=== PATIENT | male | born 1950 | race Caucasian/White ===

== ENCOUNTER 2016-06-22 20:39 | Observation (INO) | payer MEDICARE ==
[~2016-06-22] VITALS: Ht 182.9 cm; Wt 78.4 kg
[~2016-06-22 20:39] MED LIST: ABILIFY5 MG PO; ALBUTEROL0.83 MG/ML IH; ASPIRIN 81M81 MG/TA2 PO; CLEOCIN HCL300 MG PO; COLACE 100100 MG/CAP PO; DILAUDID 4MG TAB4 MG PO; FISH OIL1000 MG; FLEXERIL5 MG PO; KLONOPIN 1MG1 MG PO; LEVAQUIN 5500 MG/TA1 PO; LIPITOR 10MG10 MG PO; MULTIPLE VITAMI1 CAP PO; PERCOCET 325 MG1 TAB PO; PHENERGAN 25 TA25 MG PO; PREDNISONE20 MG PO; PREVACID 30MG30 M1 PO; PRISTIQ100 MG PO; ROXICODONE 55 MG/TAB PO; SEE INSTRUCTIONS IT; SPIRIVA RE2.5 MCG/Ac IH; SYNTHROID0.05 MG/TA PO; See Instructions IT; TESTOSTERONE1 POW; XANAX 0.5MG0.5 MG PO; ZOFRAN 4MG T4 MG/TAB PO
[2016-06-22 21:15] LABS: CREATININE, serum 1.13 mg/dL (0.66-1.25); POTASSIUM 4.8 mmol/L (3.4-5.0)
[2016-06-22 21:31] LABS: PROLACTIN 6.3 ng/mL (3.7-17.9)
[2016-06-23] VITALS (117 sets, daily range): BP systolic 106–130; BP diastolic 59–72; PULSE 71–90; TEMP 97.6–99.5; O2SAT 86–100
[2016-06-23 05:39] LABS: ADD PATHOLOGY DIFF REVIEW NO
[2016-06-23 06:45] LABS: MEAN CELL VOLUME 93 fl (80.0-100.0); MEAN CORPUSCULAR HGB CONC 33 g/dl (33.0-37.0); MEAN PLATELET VOLUME 9.4 fl (7.4-10.4); PLATELET COUNT 262 K/mm3 (130-400); RED BLOOD COUNT 3.29 M/mm3 (4.20-5.60); REDCELL DISTRIBUTION WIDTH-CV 13.9 % (11.5-14.5); WHITE BLOOD COUNT 8.1 K/mm3 (4.8-10.8)
[2016-06-23 06:46] LABS: HEMATOCRIT 30.7 % (42.0-52.0); MEAN CORPUSCULAR HEMOGLOBIN 30 pg (27.0-31.0)
[2016-06-23 07:26] LABS: PH 6 (5-8); SQUAMOUS EPITHELIAL 0-2 /hpf; URINE APPEARANCE Clear; URINE BACTERIA None Seen /hpf; URINE BILIRUBIN Negative (NEGATIVE); URINE BLOOD Negative (NEGATIVE); URINE COLOR Yellow; URINE GLUCOSE Negative (NEGATIVE); URINE KETONE Negative (NEGATIVE); URINE RBC 0-2 /hpf; URINE UROBILINOGEN Negative (NEGATIVE); URINE WBC 0-2 /hpf
[2016-06-23 07:45] LABS: BAND 1 % (0-10); NEUTROPHILS 80 % (42.0-75.2); TOTAL CELLS COUNTED 100
[2016-06-23 07:46] LABS: PLATELET ESTIMATE NORMAL (NORMAL)
[2016-06-23] MEDS ORDERED: KLONOPIN 1MG1 MG PO (10:25)
[2016-06-23] MEDS ORDERED: KEPPRA1000 MG PO (10:26)
== END 2016-06-23 11:32 | disposition home or self-care (01) ==
LOC: COL.ER 20:39 → ICU 23:36
PROVIDERS: Emergency Medicine; Internal Medicine
DX: R56.9 Unspecified convulsions (principal); Z85.118 Personal history of other malignant neoplasm of bronchus and lung; E03.9 Hypothyroidism, unspecified; D50.0 Iron deficiency anemia secondary to blood loss (chronic); K21.9 Gastro-esophageal reflux disease without esophagitis; Z87.891 Personal history of nicotine dependence
CPT/HCPCS: G0378; J1170; J1953; J2405; J2765; J3360; J7030

== ENCOUNTER → 2016-09-07 | Outpatient (CLI) | payer MEDICARE ==
[~2016-09-07] MED LIST changes: +KEPPRA1000 MG PO
== END ==
LOC: COL.CARD 12:40
DX: Z02.89 Encounter for other administrative examinations (principal)

== ENCOUNTER → 2017-02-01 | Outpatient (CLI) | payer MEDICARE | LOC: COL.CARD 12:55 | DX: R56.9 Unspecified convulsions (principal) ==

== ENCOUNTER 2017-09-28 09:56 | Outpatient (RCR) | payer MEDICARE ==
[2017-09-28] VITALS (7 sets, daily range): BP systolic 85–130; BP diastolic 55–73; PULSE 73–91; TEMP 97.1–98.4
[~2017-09-28 09:56] MED LIST changes: +00186-0372-20; +PROAIR HFA0.09 MG/AC IH
[2017-09-28] MEDS ORDERED: FOLIC ACID0.4 MG PO (10:39)
[2017-09-28] MEDS ORDERED: B-12 100 MCG (10:39)
== END 2017-09-28 14:00 | disposition home or self-care (01) ==
LOC: EUO 09:56
DX: C34.90 Malignant neoplasm of unspecified part of unspecified bronchus or lung (principal)
CPT/HCPCS: J7050; P9016